=== PATIENT | male | born 1955 | race Caucasian/White ===

== ENCOUNTER 2020-09-24 22:29 | Emergency (ER) | payer MEDICARE, BC ==
--- NOTE | 2020-09-24 23:12 | EDM.PDOC ---
ED HPI GENERAL MEDICAL PROBLEM - General Chief Complaint: General Stated Complaint: lukasz amb Time Seen by Provider: 09/24/20 22:45 Source of Information: Reports: Patient, Family () History Limitations: Reports: Altered Mental Status - History of Present Illness INITIAL COMMENTS - FREE TEXT/NARRATIVE: Mr. Todd is a very pleasant 65-year-old gentleman who is now brought to the ED by EMS with a report of confusion. According to his , who arrived to the ED not long after her , the patient has been confused all day, but had a normal mental status yesterday. The patient was diagnosed with prostate cancer about 1 year ago, then underwent a laparoscopic prostatectomy on 09/10/2020, at [facility]. He was discharged home on 09/12/2020 with a prescription for ciprofloxacin 250 mg po BID, however, he has not been taking it as prescribed, as only 9 pills are missing from his pill bottle. When asked about that, his responded "He must have forgot". His tells me that he was not prescribed any pain medications when he was discharged, however, his daughter had a leftover prescription for a narcotic pain reliever that he has been taking. His states that he had trouble walking earlier today, therefore he started using a walker, but fell nevertheless. Due to confusion, he was unable to get up on his own, and required assistance. She states that he did not hit his head, but that it took about 45 minutes before they got him up. 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 The patient had met with the power plant operators supervisor on that date for about 5 minutes. He has not met with him since. Here in the ED, the patient's initial BP is found to be mildly elevated at 145/71, with slight tachypnea of 22 rpm. He is afebrile, saturating 90% on room air. He appears to be comfortable, in no acute distress. He is aware that it is 2020, but is unable to tell me the month, date, or day. He knows who the POTUS is. He was unable to tell me when he started smoking. He states that he works, but is unable to tell me what he does. He stated that he has an Oncologist, but cannot remember their name. In fact, he does not have an Oncologist. For most questions posed to him, he appears to be distracted by looking at his fingers or arm, then seems to forget that he was asked a question. The patient's PCP is Clarisse Hamilton, SLOT KEY PERSON His Urologist is Dr. Brianna Bustos. 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 - Related Data Allergies Allergy/AdvReac Type Severity Reaction Status Date / Time No Known Allergies Allergy Verified 09/24/20 22:44 Past Medical History Oncologic (Cancer) History: Reports: Prostate (s/p prostatectomy) - Past Surgical History GI Surgical History: Reports: Appendectomy Oncologic Surgical History: Reports: Other (See Below) (Laparoscopic prostatectomy 09/10/2020) Social & Family History - Tobacco Use Tobacco Use Status *Q: Former Tobacco User Packs/Tins Daily: 1 Month/Year Tobacco Last Used: Quit 2017 - Alcohol Use Alcohol Use History: Yes Alcohol Use Frequency: Rarely - Recreational Drug Use Recreational Drug Use: No - Living Situation & Occupation Living situation: Reports: , with Spouse ED ROS GENERAL - Review of Systems Review Of Systems: Comprehensive ROS is negative, except as noted in HPI. ED EXAM, GENERAL - Physical Exam Exam: See Below Exam Limited By: Altered Mental Status (Some difficulty understanding neurologic exam commands) General Appearance: Alert, WD/WN, No Apparent Distress Eye Exam: Bilateral Eye: EOMI, Normal Inspection, PERRL Ears: Normal External Exam, Normal Canal, Hearing Grossly Normal, Normal TMs Nose: Normal Inspection, Normal Mucosa, No Blood Throat/Mouth: Normal Inspection, Normal Lips, Normal Teeth, Normal Gums, Normal Oropharynx, Normal Voice, No Airway Compromise Head: Atraumatic, Normocephalic Neck: Normal Inspection, Supple, Non-Tender, Full Range of Motion Respiratory/Chest: No Respiratory Distress, Lungs Clear, Normal Breath Sounds, No Accessory Muscle Use. No: Decreased Breath Sounds, Crackles, Rhonchi, Wheezing, Stridor, Prolonged Expiration Cardiovascular: Normal Peripheral Pulses, Regular Rate, Rhythm, No Gallop, No JVD, No Murmur, No Rub Peripheral Pulses: 3+: Radial (L), Radial (R) GI/Abdominal: Normal Bowel Sounds, Soft, Non-Tender, No Organomegaly, No Distention, No Abnormal Bruit, No Mass, Other (Several well-healing laparoscopic surgical wounds) (Male) Exam: Other (Tabor catheter draining giovanni urine to a leg bag) Back Exam: Normal Inspection, Full Range of Motion, NT Extremities: Normal Inspection, Normal Range of Motion, Normal Capillary Refill Neurological: Alert, CN II-XII Intact, No Motor/Sensory Deficits, Inattentive, Confused, Disoriented, Slow to Respond, Memory Loss Remote Events, Memory Loss Recent Events Psychiatric: Normal Affect Skin Exam: Warm, Dry, Intact, Normal Color, No Rash #1 Interpretation EKG Date: 09/24/20 Time: 23:18 Rhythm: NSR Rate (Beats/Min): 81 [place]: Normal P-Wave: Present QRS: Normal ST-T: Normal QT: Normal Comparison: NA - No Prior EKG Course - Vital Signs Last Recorded V/S: Last Vital Signs Temp 36.9 C 09/24/20 22:38 Pulse 67 09/25/20 03:31 Resp 16 09/25/20 03:31 BP 105/67 09/25/20 03:31 Pulse Ox 86 L 09/25/20 03:31 - Orders/Labs/Meds Orders: Active Orders 24 hr Category Date Time Status EKG Documentation Completion [RC] STAT Care 09/24/20 23:02 Active Ang Chest [CT] Stat Exams 09/25/20 00:35 Taken Chest 2V [CR] Stat Exams 09/24/20 23:01 Taken Head wo Cont [CT] Stat Exams 09/24/20 23:01 Taken CULTURE BLOOD [BC] Stat Lab 09/24/20 23:30 Received CULTURE BLOOD [BC] Stat Lab 09/24/20 23:35 Received CULTURE URINE [MREF] Stat Lab 09/24/20 23:14 Received Sodium Chloride 0.9% [Normal Saline] 1,000 ml Med 09/25/20 00:45 Active IV ASDIRECTED Blood Culture x2 Reflex Set [OM.PC] Stat Oth 09/24/20 23:04 Ordered Medication Orders Sodium Chloride (Normal Saline) 1,000 mls @ 150 mls/hr IV ASDIRECTED AN Last Admin: 09/25/20 00:54 Dose: 150 mls/hr Documented by: MALDONADO Labs: Laboratory Tests 09/24/20 09/24/20 09/24/20 Range/Units 23:14 23:14 23:20 WBC (4.23-9.07) K/mm3 RBC (4.63-6.08) M/mm3 Hgb (13.7-17.5) gm/dl Hct (40.1-51.0) % MCV (79.0-92.2) fl MCH (25.7-32.2) pg MCHC (32.2-35.5) g/dl RDW Std Deviation (35.1-43.9) fL Plt Count (163-337) K/mm3 MPV (9.4-12.3) fl Neutrophils % (Manual) (40-60) % Band Neutrophils % (0-10) % Lymphocytes % (Manual) (20-40) % Atypical Lymphs % % Monocytes % (Manual) (2-10) % Eosinophils % (Manual) (0.8-7.0) % Basophils % (Manual) (0.2-1.2) Platelet Estimate RBC Morph Comment D-Dimer, Quantitative (0.19-0.50) mg/L Puncture Site Lt radial ABG pH 7.48 H (7.35-7.45) ABG pCO2 31.5 L (35.0-45.0) mmHg ABG pO2 63.0 L (80.0-100.0) mmHg ABG HCO3 23.3 (22.0-26.0) meq/L ABG O2 Saturation 90.4 L (96.0-97.0) % ABG Base Excess 0.9 (-2-2.0) Facundo Test Positive A-a Gradient 48 mmHg O2 Delivery Device Room air FiO2 21.00 (21.00-100.00) % Sodium (136-145) mEq/L Potassium (3.5-5.1) mEq/L Chloride (98-107) mEq/L Carbon Dioxide (21-32) mEq/L Anion Gap (5-15) BUN (7-18) mg/dL Creatinine (0.7-1.3) mg/dL Est Cr Clr Drug Dosing mL/min Estimated GFR (MDRD) (>60) mL/min BUN/Creatinine Ratio (14-18) Glucose (70-99) mg/dL Lactic Acid (0.4-2.0) mmol/L Calcium (8.5-10.1) mg/dL Magnesium (1.8-2.4) mg/dL Total Bilirubin (0.2-1.0) mg/dL AST (15-37) U/L ALT (16-63) U/L Alkaline Phosphatase (46-116) U/L Troponin I (0.00-0.056) ng/mL C-Reactive Protein (<1.0) mg/dL Total Protein (6.4-8.2) g/dl Albumin (3.4-5.0) g/dl Globulin gm/dL Albumin/Globulin Ratio (1-2) TSH 3rd Generation (0.358-3.74) uIU/mL Urine Color Dark yellow (Yellow) Urine Appearance Cloudy H (Clear) Urine pH 5.5 (5.0-8.0) Ur Specific [place] > or = 1.030 (1.005-1.030) Urine Protein 3+ H (Negative) Urine Glucose (UA) Negative (Negative) Urine Ketones 2+ H (Negative) Urine Occult Blood 3+ H (Negative) Urine Nitrite Negative (Negative) Urine Bilirubin 1+ H (Negative) Urine Urobilinogen 0.2 (0.2-1.0) Ur Leukocyte Esterase Trace H (Negative) U Hyaline Cast (Auto) 10-20 H (0-5) /lpf Urine RBC 75-100 H (0-5) /hpf Urine WBC 10-20 H (0-5) /hpf Ur Squamous Epith Cells 0-5 (0-5) /hpf Amorphous Sediment Few H (NOT SEEN) /hpf Urine Bacteria Moderate H (FEW) /hpf Fine Granular Casts 0-5 (0-5) /lpf Urine Mucus Moderate H (FEW) /hpf Urine Opiates Screen Negative (BOJPOE=674) Ur Buprenorphine Scrn Negative (CUTOFF=10) Ur Oxycodone Screen Negative (QKV4BB=401) Urine Methadone Screen Negative (IPP2CP=486) Ur Propoxyphene Screen Presumptive positive (WWXQOL=106) Ur Barbiturates Screen Negative (GOWFEG=249) Ur Tricyclics Screen Negative (RJYVWL=482) Ur Phencyclidine Scrn Negative (CUTOFF=25) Ur Amphetamine Screen Negative (JZGAUZ=178) U Methamphetamines Scrn Negative (JSANLY=431) U Benzodiazepines Scrn Negative (COLOGQ=102) U Cocaine Metab Screen Negative (TSBVNL=150) U Marijuana (THC) Screen Negative (CUTOFF=50) Ethyl Alcohol (0.00) gm% Influenza Type A RNA (NEGATIVE) Influenza Type B RNA (NEGATIVE) SARS-CoV-2 RNA (DOMI) (NEGATIVE) 09/24/20 09/24/20 09/24/20 Range/Units 23:30 23:30 23:30 WBC 4.20 L (4.23-9.07) K/mm3 RBC 4.61 L (4.63-6.08) M/mm3 Hgb 13.6 L (13.7-17.5) gm/dl Hct 40.3 (40.1-51.0) % MCV 87.4 (79.0-92.2) fl MCH 29.5 (25.7-32.2) pg MCHC 33.7 (32.2-35.5) g/dl RDW Std Deviation 43.7 (35.1-43.9) fL Plt Count 219 (163-337) K/mm3 MPV 10.7 (9.4-12.3) fl Neutrophils % (Manual) 81 H (40-60) % Band Neutrophils % 0 (0-10) % Lymphocytes % (Manual) 12 L (20-40) % Atypical Lymphs % 0 % Monocytes % (Manual) 7 (2-10) % Eosinophils % (Manual) 0 L (0.8-7.0) % Basophils % (Manual) 0 L (0.2-1.2) Platelet Estimate Adequate RBC Morph Comment Normal D-Dimer, Quantitative (0.19-0.50) mg/L Puncture Site ABG pH (7.35-7.45) ABG pCO2 (35.0-45.0) mmHg ABG pO2 (80.0-100.0) mmHg ABG HCO3 (22.0-26.0) meq/L ABG O2 Saturation (96.0-97.0) % ABG Base Excess (-2-2.0) Facundo Test A-a Gradient mmHg O2 Delivery Device FiO2 (21.00-100.00) % Sodium 137 (136-145) mEq/L Potassium 3.9 (3.5-5.1) mEq/L Chloride 101 (98-107) mEq/L Carbon Dioxide 25 (21-32) mEq/L Anion Gap 14.9 (5-15) BUN 28 H (7-18) mg/dL Creatinine 1.3 (0.7-1.3) mg/dL Est Cr Clr Drug Dosing 57.71 mL/min Estimated GFR (MDRD) 55 (>60) mL/min BUN/Creatinine Ratio 21.5 H (14-18) Glucose 106 H (70-99) mg/dL Lactic Acid 1.2 (0.4-2.0) mmol/L Calcium 8.2 L (8.5-10.1) mg/dL Magnesium 2.0 (1.8-2.4) mg/dL Total Bilirubin 1.0 (0.2-1.0) mg/dL AST 57 H (15-37) U/L ALT 40 (16-63) U/L Alkaline Phosphatase 50 (46-116) U/L Troponin I 0.040 (0.00-0.056) ng/mL C-Reactive Protein 1.9 H* (<1.0) mg/dL Total Protein 6.2 L (6.4-8.2) g/dl Albumin 2.8 L (3.4-5.0) g/dl Globulin 3.4 gm/dL Albumin/Globulin Ratio 0.8 L (1-2) TSH 3rd Generation 0.536 (0.358-3.74) uIU/mL Urine Color (Yellow) Urine Appearance (Clear) Urine pH (5.0-8.0) Ur Specific [place] (1.005-1.030) Urine Protein (Negative) Urine Glucose (UA) (Negative) Urine Ketones (Negative) Urine Occult Blood (Negative) Urine Nitrite (Negative) Urine Bilirubin (Negative) Urine Urobilinogen (0.2-1.0) Ur Leukocyte Esterase (Negative) U Hyaline Cast (Auto) (0-5) /lpf Urine RBC (0-5) /hpf Urine WBC (0-5) /hpf Ur Squamous Epith Cells (0-5) /hpf Amorphous Sediment (NOT SEEN) /hpf Urine Bacteria (FEW) /hpf Fine Granular Casts (0-5) /lpf Urine Mucus (FEW) /hpf Urine Opiates Screen (OODVGM=412) Ur Buprenorphine Scrn (CUTOFF=10) Ur Oxycodone Screen (YCH3ZQ=205) Urine Methadone Screen (AFA0PH=613) Ur Propoxyphene Screen (WKYKLG=536) Ur Barbiturates Screen (IGRSQB=265) Ur Tricyclics Screen (GVQYFV=883) Ur Phencyclidine Scrn (CUTOFF=25) Ur Amphetamine Screen (AJFQDH=167) U Methamphetamines Scrn (XHWSIS=358) U Benzodiazepines Scrn (DVDKGR=903) U Cocaine Metab Screen (ILBQNU=855) U Marijuana (THC) Screen (CUTOFF=50) Ethyl Alcohol 0.00 (0.00) gm% Influenza Type A RNA (NEGATIVE) Influenza Type B RNA (NEGATIVE) SARS-CoV-2 RNA (DOMI) (NEGATIVE) 09/24/20 09/25/20 Range/Units 23:30 00:31 WBC (4.23-9.07) K/mm3 RBC (4.63-6.08) M/mm3 Hgb (13.7-17.5) gm/dl Hct (40.1-51.0) % MCV (79.0-92.2) fl MCH (25.7-32.2) pg MCHC (32.2-35.5) g/dl RDW Std Deviation (35.1-43.9) fL Plt Count (163-337) K/mm3 MPV (9.4-12.3) fl Neutrophils % (Manual) (40-60) % Band Neutrophils % (0-10) % Lymphocytes % (Manual) (20-40) % Atypical Lymphs % % Monocytes % (Manual) (2-10) % Eosinophils % (Manual) (0.8-7.0) % Basophils % (Manual) (0.2-1.2) Platelet Estimate RBC Morph Comment D-Dimer, Quantitative 1.46 H (0.19-0.50) mg/L Puncture Site ABG pH (7.35-7.45) ABG pCO2 (35.0-45.0) mmHg ABG pO2 (80.0-100.0) mmHg ABG HCO3 (22.0-26.0) meq/L ABG O2 Saturation (96.0-97.0) % ABG Base Excess (-2-2.0) Facundo Test A-a Gradient mmHg O2 Delivery Device FiO2 (21.00-100.00) % Sodium (136-145) mEq/L Potassium (3.5-5.1) mEq/L Chloride (98-107) mEq/L Carbon Dioxide (21-32) mEq/L Anion Gap (5-15) BUN (7-18) mg/dL Creatinine (0.7-1.3) mg/dL Est Cr Clr Drug Dosing mL/min Estimated GFR (MDRD) (>60) mL/min BUN/Creatinine Ratio (14-18) Glucose (70-99) mg/dL Lactic Acid (0.4-2.0) mmol/L Calcium (8.5-10.1) mg/dL Magnesium (1.8-2.4) mg/dL Total Bilirubin (0.2-1.0) mg/dL AST (15-37) U/L ALT (16-63) U/L Alkaline Phosphatase (46-116) U/L Troponin I (0.00-0.056) ng/mL C-Reactive Protein (<1.0) mg/dL Total Protein (6.4-8.2) g/dl Albumin (3.4-5.0) g/dl Globulin gm/dL Albumin/Globulin Ratio (1-2) TSH 3rd Generation (0.358-3.74) uIU/mL Urine Color (Yellow) Urine Appearance (Clear) Urine pH (5.0-8.0) Ur Specific [place] (1.005-1.030) Urine Protein (Negative) Urine Glucose (UA) (Negative) Urine Ketones (Negative) Urine Occult Blood (Negative) Urine Nitrite (Negative) Urine Bilirubin (Negative) Urine Urobilinogen (0.2-1.0) Ur Leukocyte Esterase (Negative) U Hyaline Cast (Auto) (0-5) /lpf Urine RBC (0-5) /hpf Urine WBC (0-5) /hpf Ur Squamous Epith Cells (0-5) /hpf Amorphous Sediment (NOT SEEN) /hpf Urine Bacteria (FEW) /hpf Fine Granular Casts (0-5) /lpf Urine Mucus (FEW) /hpf Urine Opiates Screen (FJMKYJ=031) Ur Buprenorphine Scrn (CUTOFF=10) Ur Oxycodone Screen (YRN5GF=645) Urine Methadone Screen (NCG5WV=408) Ur Propoxyphene Screen (ZNXQGX=724) Ur Barbiturates Screen (OLPMTA=597) Ur Tricyclics Screen (HPSCGI=952) Ur Phencyclidine Scrn (CUTOFF=25) Ur Amphetamine Screen (SAUMJJ=717) U Methamphetamines Scrn (HPNAYM=453) U Benzodiazepines Scrn (XICJNM=284) U Cocaine Metab Screen (JNTXDC=221) U Marijuana (THC) Screen (CUTOFF=50) Ethyl Alcohol (0.00) gm% Influenza Type A RNA Negative (NEGATIVE) Influenza Type B RNA Negative (NEGATIVE) SARS-CoV-2 RNA (DOMI) Positive H (NEGATIVE) Meds: Medications Generic Name Dose Route Start Last Admin Trade Name Denisha PRN Reason Stop Dose Admin Sodium Chloride 1,000 mls @ 150 mls/hr 09/25/20 00:45 09/25/20 00:54 Normal Saline IV 150 mls/hr ASDIRECTED [facility] Administration - Re-Assessments/Exams Free Text/Narrative Re-Assessment/Exam: 09/24/20 23:07 As above, the patient underwent a laparoscopic cholecystectomy on or about 09/12/2020, was prescribed ciprofloxacin, but has not been taking it as prescribed, then became confused today. He denies having any pain anywhere. On examination, the patient knows where he is, and that it is 2020, but is unable to say the month, date, or day. He has difficulty answering many of his PMH questions. His neurologic examination, is otherwise unremarkable. I have ordered an extensive work-up including numerous blood tests, 2 sets of blood c ultures, an ABG, a urinalysis, urine drug screen, urine culture, a swab for the SARS-CoV-2 virus and influenza A + B viruses, a chest x-ray, a CT of the head without contrast, and an ECG. 09/25/20 00:36 Two-view chest radiograph reviewed. Less than optimal inspiratory effort. The cardiac silhouette is within normal limits. No pulmonary vascular congestion. No pleural effusions. No focal infiltrate, although there may be some atelectasis in the vicinity of the horizontal fissure. No pneumothorax. Formal read per the Radiologist pending. The patient's CBC is remarkable for leukopenia of 4.20, and a Hgb slightly depressed at 13.6, with a Hct within normal limits at 40.3, and the remainder of his CBC being unremarkable. His CMP is remarkable for a BUN mildly elevated at 28, with a Cr within normal limits at 1.3. He has very slight hyperglycemia of 106. His AST is slightly elevated at 57, with an ALT normal at 40, and the remainder of his CMP being unremarkable.] His magnesium level is within normal limits at 2.0. His lactic acid level is within normal limits at 1.2. His CRP is mildly elevated at 1.9. His TSH is within normal limits at 0.536. His troponin is within normal limits at 0.40. His D-dimer is elevated at 1.46. His EtOH level is 0.00. His ABG represents a primary respiratory alkalosis with secondary metabolic alkalosis. His urine drug screen is positive for propoxyphene. His urinalysis is remarkable for 3+ occult blood with 75-100 RBCs, trace leukocyte esterase with 10-20 WBCs, and negative nitrite with moderate bacteria. The patient's swab for the SARS-CoV-2 virus and influenza A + B viruses, and results of the CT of the head are still pending. Based on the above, I have ordered a CT angiogram of the chest to evaluate for PE, along with some IV fluid. 09/25/20 01:00 CT of the head without contrast is read by [facility] as: 1. Ventricular dilation, concerning for NPH. 2. No acute infarct or hemorrhage. 3. Mild parenchymal atrophy and chronic small vessel disease. 09/25/20 01:28 The patient's swab for the SARS-CoV-2 virus has returned positive, while the influenza A + B returned negative. 09/25/20 02:23 CT angiogram of the chest is read by [facility] as: 1. No pulmonary embolism. 2. Bilateral ground-glass opacities which are nonspecific but can be seen in COVID-19. 3. Nonspecific, tiny amount of perihepatic free fluid. 09/25/20 02:28 Test results discussed with the patient, his , and their friend. The main findings from [facility]'s work-up are that the patient is on propoxyphene, which may be contributing to his altered mental status, that he has COVID-19, which can also contribute to confusion, and that he appears to have normal pressure hydrocephalus, which is the most likely cause of his confusion. 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 The patient's agreed. 09/25/20 02:57 The portable chest x-ray, CT/head, and CT angiogram/chest images were pushed to [facility] at 02:28. Case discussed with Hailey at [facility] at 02:29. Case then discussed with Dr. Jones, Hospitalist at [facility], at 02:52. She accepted the patient for transfer to their facility, however, they will not have a COVID bed available until the morning, therefore the plan will be to keep the patient here in the ED until such time as we are notified that a COVID bed is available. Hailey said that we should expect a call from her around 05:15 MDT. Departure - Departure Time of Disposition: 03:00 Disposition: DC/Tfer to Acute Hospital 02 Condition: Fair Clinical Impression: Normal pressure hydrocephalus, COVID-19 - Discharge Information *PRESCRIPTION DRUG MONITORING PROGRAM REVIEWED*: Not Applicable *COPY OF PRESCRIPTION DRUG MONITORING REPORT IN PATIENT SHAKIR: Not Applicable Referrals: Clarisse Hamilton NP [Ordering Only Provider] - Brianna Bustos MD [Ordering Only Provider] - Forms: ED Department Discharge Sepsis Event Note (ED) - Evaluation Sepsis Screening Result: No Definite Risk - Focused Exam Vital Signs: Vital Signs Temp Pulse Resp BP Pulse Ox 09/25/20 03:31 67 16 105/67 86 L 09/24/20 22:38 36.9 C 85 22 H 145/71 H 90 L - My Orders Last 24 Hours: My Active Orders 09/24/20 23:01 Chest 2V [CR] Stat Head wo Cont [CT] Stat 09/24/20 23:02 EKG Documentation Completion [RC] STAT 09/24/20 23:04 Blood Culture x2 Reflex Set [OM.PC] Stat 09/24/20 23:14 CULTURE URINE [MREF] Stat 09/24/20 23:30 CULTURE BLOOD [BC] Stat 09/24/20 23:35 CULTURE BLOOD [BC] Stat 09/25/20 00:35 Ang Chest [CT] Stat 09/25/20 00:45 Sodium Chloride 0.9% [Normal Saline] 1,000 ml IV ASDIRECTED - Assessment/Plan Last 24 Hours: My Active Orders 09/24/20 23:01 Chest 2V [CR] Stat Head wo Cont [CT] Stat 09/24/20 23:02 EKG Documentation Completion [RC] STAT 09/24/20 23:04 Blood Culture x2 Reflex Set [OM.PC] Stat 09/24/20 23:14 CULTURE URINE [MREF] Stat 09/24/20 23:30 CULTURE BLOOD [BC] Stat 09/24/20 23:35 CULTURE BLOOD [BC] Stat 09/25/20 00:35 Ang Chest [CT] Stat 09/25/20 00:45 Sodium Chloride 0.9% [Normal Saline] 1,000 ml IV ASDIRECTED
[2020-09-25] MEDS ORDERED: Sodium Chloride 0.9% 1,000 ML IV SCH (00:45)
[2020-09-25 01:19] LABS: CORONAVIRUS COVID-19 NAA POSITIVE (NEGATIVE)
--- NOTE | 2020-09-25 07:45 | CT ---
CT chest Technique: Multiple axial sections through the chest were obtained. Intravenous contrast was utilized. Study has been performed as a pulmonary angiogram protocol. Comparison: Prior chest x-ray performed earlier on same day. Findings: Pulmonary arteries are fairly well opacified. No filling defects are seen to indicate pulmonary embolism. Thoracic aorta shows no aneurysm. Mediastinum shows no adenopathy. No axillary adenopathy is seen. No pericardial thickening is seen. Small portion of the visualized upper abdominal structures show slight scarring within a portion of the left kidney. Minimal free fluid is seen around the inferior liver. Patchy areas of increased density are seen within the left lung base, right middle lobe and within both upper lungs. Bone window settings were reviewed which show mild degenerative change within the thoracic spine. No acute osseous abnormality is appreciated. Impression: 1. No findings of pulmonary embolism are seen. 2. Patchy areas of increased density on both sides of the chest. Please rule out Covid as this can be seen with Covid pneumonia. Other pneumonia is also within the differential. 3. Small amount of fluid off the inferior liver and minimal scarring within the left kidney is noted. Diagnostic code #3 I agree with preliminary report from [facility], finalized on 09/25/20, 3:18 AM CDT, code 1
--- NOTE | 2020-09-25 07:51 | CR ---
Chest: 2 views of the chest were obtained. Comparison: Study is compared to subsequent chest CT exam performed on the same day. Slight atelectasis is seen adjacent to the minor fissure. Areas of parenchymal density noted on chest CT are poorly seen on plain film exam. Lungs are currently felt to be clear. Heart size and mediastinum are normal. Old healed left clavicle fracture is noted. Impression: 1. Subsequent findings on chest CT not well seen on chest x-ray. 2. Mild atelectasis within right midlung and old healed left clavicle fracture are noted. Diagnostic code #2
--- NOTE | 2020-09-25 07:52 | CT ---
Head CT Technique: Multiple axial sections through the brain were obtained. Intravenous contrast was not utilized. Reconstructed coronal and sagittal images were obtained. Comparison: No prior intracranial imaging is available. Findings: Ventricles are prominently dilated. Sulci over the convexities are within normal limits. Very minimal areas of diminished density is seen within the periventricular white matter. No other abnormal parenchymal densities are seen. No evidence of intracranial hemorrhage. No midline shift or mass-effect is seen. Bone window settings were reviewed. Visualized mastoid sinuses and paranasal sinuses show nothing acute. No acute calvarial abnormality is appreciated. Impression: 1. Prominently dilated ventricular system. This can represent central atrophy but possibility of normal pressure hydrocephalus (NPH) should also be considered as an etiology for the patient's symptoms and radiographic findings. 2. Mild senescent change as noted above. 3. No acute intracranial abnormality is otherwise seen. Diagnostic code #3 I agree with preliminary report from [facility], finalized on 09/25/20, 1:58 AM CDT, code 1
== END 2020-09-25 06:45 ==
LOC: JD.ED 22:29
DX: U07.1 COVID-19 (principal); G91.2 (Idiopathic) normal pressure hydrocephalus; Z87.891 Personal history of nicotine dependence
CPT/HCPCS: 0240U; 36415; 36600; 70450; 71046; 71275; 80053; 80306; 80307; 81001; 82803; 83605; 83735; 84443; 84484; 85007; 85027; 85379; 86140; 87040; 87086; 93005; 99285; J7030; 93010

== ENCOUNTER 2023-11-13 21:13 | Emergency (ER) | payer MEDICARE, BC | END 2023-11-13 23:20 | disposition home or self-care (01) | LOC: JD.ED 21:13 | DX: S62.662A Nondisplaced fracture of distal phalanx of right middle finger, initial encounter for closed fracture (principal); S80.01XA Contusion of right knee, initial encounter; S80.11XA Contusion of right lower leg, initial encounter; S60.221A Contusion of right hand, initial encounter; Z79.899 Other long term (current) drug therapy; W17.89XA Other fall from one level to another, initial encounter; Y93.89 Activity, other specified | CPT/HCPCS: 73130-26-RT; 73130-RT; 73564-26-RT; 73564-RT; 73590-26-RT; 73590-RT; 99283 ==